=== PATIENT | female | born 1985 | race Caucasian/White ===

== ENCOUNTER 2018-05-22 05:14 | Emergency (ER) | payer OTHER ==
[2018-05-22 05:17] VITALS: O2SAT 100
[2018-05-22 05:29] VITALS: BP 144/81; PULSE 103; RESP 16; TEMP 97.3
[2018-05-22 05:41] LABS: APPEARANCE,URINE Clear; BILIRUBIN,URINE NEGATIVE (NEGATIVE); COLOR,URINE Yellow; GLUCOSE, URINE (UA) NEGATIVE (NEGATIVE); KETONES,URINE NEGATIVE (NEGATIVE); LEUKOCYTE ESTERASE ,URINE 1+ (NEGATIVE); NITRATE,URINE NEGATIVE (NEGATIVE); OCCULT BLOOD,URINE 2+ (NEG-TRACE); PH,URINE 5.5; UROBILINOGEN,URINE 0.2 (0.2-1.0 EU)
[2018-05-22 05:54] LABS: BACTERIA 1+ (< 1+); CRYSTALS NEGATIVE (0-3 AVE/HPF)
== END 2018-05-22 08:23 | disposition home or self-care (01) | DRG 694 ==
LOC: ED 05:14
DX: N20.0 Calculus of kidney (principal)
CPT/HCPCS: 74176; 81001; 87088; 87205; 99283

== ENCOUNTER 2018-09-08 09:30 | Day surgery (SDC) | payer OTHER ==
[~2018-09-08 09:30] MED LIST: PROPOFOL 500 MG/50 ML EMU IV ONE
[2018-09-08] MEDS ORDERED: ONDANSETRON HCL 4 MG/2 ML SOL ONE (11:31)
[2018-09-08] MEDS ORDERED: PROPOFOL 10 MG/ML 200 MG/20 ML EMU IV ONE (11:37)
[2018-09-08 11:56] VITALS: TEMP 97.3
[2018-09-08 12:31] VITALS: RESP 20
[2018-09-08 12:44] VITALS: BP 124/84; PULSE 94; O2SAT 100
[2018-09-08 15:26] LABS: PATHOLOGY SPEC OR BIOPSY REFER MAYO/MKTO PATH
== END 2018-09-08 12:50 | disposition home or self-care (01) | DRG 392 ==
LOC: SURG 09:30
PROVIDERS: ATTEND Internal Medicine Gastroenterology
DX: R10.30 Lower abdominal pain, unspecified (principal); Z85.038 Personal history of other malignant neoplasm of large intestine; Z83.71 Family history of colonic polyps; Z84.89 Family history of other specified conditions; K59.00 Constipation, unspecified; L53.8 Other specified erythematous conditions; K64.8 Other hemorrhoids; D12.5 Benign neoplasm of sigmoid colon
CPT/HCPCS: 99001; J2405; J2704

== ENCOUNTER 2019-01-05 08:35 | Emergency (ER) | payer OTHER ==
[2019-01-05 08:52] VITALS: RESP 20; TEMP 96.9; O2SAT 99
[2019-01-05 09:21] VITALS: BP 115/67; PULSE 74
== END 2019-01-05 09:14 | disposition home or self-care (01) | DRG 153 ==
LOC: ED 08:35
DX: J01.90 Acute sinusitis, unspecified (principal); R00.2 Palpitations
CPT/HCPCS: 99282